=== PATIENT | female | born 1990 | race Caucasian/White ===

== ENCOUNTER 2017-02-10 09:20 | Emergency (ER) | payer OTHER ==
[~2017-02-10] VITALS: Ht 152.4 cm; Wt 80.0 kg
[~2017-02-10 09:20] MED LIST: CIPR500T4 PO; CYCL-319 PO; IBUP-1542 PO
[2017-02-10 09:34] VITALS: Ht 152.4 cm; Wt 80.0 kg
[2017-02-10] MEDS ORDERED: ONDANSETRON (ODT) 4 MG TAB ODT STA (10:29)
--- NOTE | 2017-02-10 10:34 | ERD ---
ER Documentation Chief Complaint Date/Time DATE: 02/10/17 TIME: 10:33 Chief Complaint vomiting HPI 18-year-old female complains of vomiting and cramps in her abdomen after having fluid outside last night. 3 per family members have similar complaints at all at the same thing. No fevers no chills. No diarrhea. No other current complaints. Pain is mild. ROS All systems reviewed and are negative except as per history of present illness. Medications Home Meds Active Scripts Cyclobenzaprine Hcl* (Cyclobenzaprine Hcl*) 10 Mg Tablet, 10 MG PO TID, #15 TAB Prov:ANSON KRAMER. PLANER TAILER 08/08/16 Ibuprofen* (Motrin*) 600 Mg Tab, 600 MG PO Q6H Y for PAIN AND OR ELEVATED TEMP, #30 TAB Prov:ANSON KRAMER. PLANER TAILER 08/08/16 Ciprofloxacin Hcl* (Ciprofloxacin Hcl*) 500 Mg Tablet, 500 MG PO BID for 7 Days , TAB Prov:TAMI CARRILLO DO 03/07/16 Allergies Allergies: Coded Allergies: No Known Drug Allergies (Verified Allergy, Mild, 03/07/16) PMhx/Soc Medical and Surgical Hx: pt denies Medical Hx, pt denies Surgical Hx History of Surgery: No Anesthesia Reaction: No Hx Neurological Disorder: No Hx Respiratory Disorders: No Hx Cardiac Disorders: No Hx Psychiatric Problems: No Hx Miscellaneous Medical Probl: No Hx Alcohol Use: No Hx Substance Use: No Hx Tobacco Use: No Smoking Status: Never smoker Physical Exam Vitals Vital Signs Date Time Temp Pulse Resp B/P Pulse Ox O2 Delivery O2 Flow Rate FiO2 02/10/17 09:34 98.3 85 18 110/65 99 Physical Exam Const: [] Head: Atraumatic Eyes: Normal Conjunctiva ENT: Normal External Ears, Nose and Mouth. Neck: Full range of motion..~ No meningismus. Resp: Clear to auscultation bilaterally Cardio: Regular rate and rhythm, no murmurs Abd: Soft, non tender, non distended. Normal bowel sounds Skin: No petechiae or rashes Back: No midline or flank tenderness Ext: No cyanosis, or edema Neur: Awake and alert Psych: Normal Mood and Affect Results 24 hrs Current Medications Medications (Trade) Dose Ordered Sig/Maddy Route PRN Reason Start Time Stop Time Status Last Admin Dose Admin Ondansetron HCl (Zofran Odt) 4 mg ONCE STAT ODT 02/10/17 10:29 02/10/17 10:30 DC 02/10/17 10:32 Procedures/MDM Very pleasant 18-year-old female with likely foodborne gastroenteritis. At this point clinically stable he will be discharged home with Zofran and Bentyl. Told to increase p.o. fluid intake. Follow with PCP. Return here in 8 hours for serial abdominal exams. Departure Diagnosis: Primary Impression: Gastroenteritis DICKSON ROGERS February 10, 2017 10:34
[2017-02-10] MEDS ORDERED: DICY10CA60 PO (10:38)
[2017-02-10] MEDS ORDERED: ONDA4TAB14 PO (10:38)
== END 2017-02-10 10:56 | disposition home or self-care (01) ==
LOC: E/R 09:20
DX: K52.9 Noninfective gastroenteritis and colitis, unspecified (principal)
CPT/HCPCS: Z7502; Z7610; 99284

== ENCOUNTER 2017-06-12 19:10 | Emergency (ER) | payer OTHER ==
[~2017-06-12] VITALS: Ht 162.6 cm; Wt 76.5 kg
[~2017-06-12 19:10] MED LIST changes: +DICY10CA60 PO; +ONDA4TAB14 PO
[2017-06-12 19:23] VITALS: Ht 162.6 cm; Wt 76.5 kg
[2017-06-12] MEDS ORDERED: AMOX500C2 PO (19:41)
--- NOTE | 2017-06-12 19:45 | ERA ---
ER Documentation Chief Complaint Date/Time DATE: 06/12/17 TIME: 19:42 Chief Complaint cough x 4 days HPI Otherwise healthy 26-year-old female presents with a chief complaint of pharyngitis and cough. Patient has had these symptoms once a year for as long as she can remember. Denies any fever, difficulty breathing, dysphagia, odynophagia, change in voice, drooling, headache. As take getting cough syrup with moderate relief. States she has taken amoxicillin in the past with relief of symptoms.Patient has no other complaints and describes no other associated manifestations. Nursing notes have been reviewed and are consistent with history given. ROS All systems reviewed and are negative except as per history of present illness. Medications Home Meds Active Scripts Amoxicillin* (Amoxicillin*) 500 Mg Cap, 500 MG PO BID for 10 Days, CAP Prov:MORGAN PADILLA PA-C 06/12/17 Ondansetron (Ondansetron Odt) 4 Mg Tab.rapdis, 4 MG PO Q6H Y for NAUSEA AND/OR VOMITING, #10 TAB Prov:DICKSON ROGERS. 02/10/17 Dicyclomine Hcl* (Bentyl*) 10 Mg Capsule, 10 MG PO QID, #20 CAP Prov:DICKSON ROGERS S. 02/10/17 Cyclobenzaprine Hcl* (Cyclobenzaprine Hcl*) 10 Mg Tablet, 10 MG PO TID, #15 TAB Prov:ANSON KRAMER. SALES CONSULTANT 08/08/16 Ibuprofen* (Motrin*) 600 Mg Tab, 600 MG PO Q6H Y for PAIN AND OR ELEVATED TEMP, #30 TAB Prov:ANSON KRAMER. SALES CONSULTANT 08/08/16 Ciprofloxacin Hcl* (Ciprofloxacin Hcl*) 500 Mg Tablet, 500 MG PO BID for 7 Days , TAB Prov:TAMI CARRILLO DO 03/07/16 Allergies Allergies: Coded Allergies: No Known Drug Allergies (Verified Allergy, Mild, 03/07/16) PMhx/Soc History of Surgery: No Anesthesia Reaction: No Hx Neurological Disorder: No Hx Respiratory Disorders: No Hx Cardiac Disorders: No Hx Psychiatric Problems: No Hx Miscellaneous Medical Probl: No Hx Alcohol Use: No Hx Substance Use: No Hx Tobacco Use: No Smoking Status: Never smoker Physical Exam Vitals Vital Signs Date Time Temp Pulse Resp B/P Pulse Ox O2 Delivery O2 Flow Rate FiO2 9/29/17 19:23 98.2 75 20 106/66 100 Physical Exam Const: [] Head: Atraumatic Eyes: Normal Conjunctiva ENT: Normal External Ears, Nose and Mouth. Neck: Full range of motion..~ No meningismus. Resp: Clear to auscultation bilaterally Cardio: Regular rate and rhythm, no murmurs Abd: Soft, non tender, non distended. Normal bowel sounds Skin: No petechiae or rashes Back: No midline or flank tenderness Ext: No cyanosis, or edema Neur: Awake and alert Psych: Normal Mood and Affect Procedures/MDM Otherwise healthy 26-year-old female presented with a chief complaint of pharyngitis and cough 1 week as described in history and physical examination. Has a chronic history of tonsillitis. States amoxicillin has worked in the past. No fever. No suspicion for endangerment of the airway. Physical examination revealed exudates and enlarged tonsils bilaterally with an erythematous oropharynx. Nares have unremarkable. Most likely diagnosis is acute on chronic tonsillitis. I recommended follow-up with PCP for reevaluation and possible referral to a specialist. I have spoke with the patient regarding their condition and future management. They have verbally responded that they understand their status and treatment plan. The patients vitals are stable, and their current condition is appropriate for discharge. The patient will be given discharge instructions with return precautions. Discharge medications: Amoxicillin 500 mg twice daily 10 days. I recommended [id number] ibuprofen for discomfort Departure Diagnosis: Primary Impression: Tonsillitis Condition: Stable Additional Instructions: Follow up with your PCP within the next 1-3 days for a more thorough evaluation and a possible referral to a specialist. Return the the emergency department immediately if symptoms worsen or change. If you have any questions regarding medications, ask your pharmacist or us before you leave. If any adverse reactions occur while taking your medications, discontinue the treatment and return to the emergency department immediately. Take your medications as directed, and complete the entire course of treatment. MORGAN PADILLA PA-C Jun 12, 2017 19:45
== END 2017-06-12 19:58 | disposition home or self-care (01) ==
LOC: FTE 19:10
DX: J03.90 Acute tonsillitis, unspecified (principal)
CPT/HCPCS: 99283

== ENCOUNTER 2018-09-14 19:01 | Emergency (ER) | payer OTHER ==
[~2018-09-14] VITALS: Ht 157.5 cm; Wt 77.2 kg
[~2018-09-14 19:01] MED LIST changes: +AMOX500C2 PO; -CYCL-319 PO; +CYCL10TA7 PO; +DICY10CA40 PO; -DICY10CA60 PO
[2018-09-14 19:08] VITALS: BP 128/68; PULSE 107; RESP 19; Ht 157.5 cm; Wt 77.2 kg
[2018-09-14] MEDS ORDERED: ACETAMINOPHEN 325 MG TAB PO ONE (20:00)
[2018-09-14] MEDS ORDERED: IBUP-1542 PO (20:06)
[2018-09-14] MEDS ORDERED: AMOX1TAB10 PO (20:06)
[2018-09-14] MEDS ORDERED: IBUPROFEN 600 MG TAB PO ONE (20:30)
--- NOTE | 2018-09-14 21:35 | ERD ---
ER Documentation Chief Complaint Chief Complaint ST w/ body aches/fever/chills since yesterday HPI 27-year-old female patient with no significant past medical history presents the ED complaining of fever, body aches, sore throat, chills that started yesterday. Patient reports that she started to notice white stuff on her tonsils. Patient is up-to-date with her vaccinations. Patient reports that she is able to swallow liquids and solids without any difficulty. Denies any chest pain, shortness of breath, nausea, vomiting, diarrhea, neck stiffness. ROS All systems reviewed and are negative except as per history of present illness. Medications Home Meds Active Scripts Ibuprofen* (Motrin*) 600 Mg Tab, 600 MG PO Q6, #30 TAB Prov:MOLINA CHIU PA-C 09/14/18 Amoxicillin/Potassium Clav (Amox-Clav 875-125 mg Tablet) 875-125 mg Tab, 1 TAB PO BID for 10 Days, #20 TAB Prov:MOLINA CHIU PA-C 09/14/18 Amoxicillin* (Amoxicillin*) 500 Mg Cap, 500 MG PO BID for 10 Days, CAP Prov:MORGAN PADILLA PA-C 06/12/17 Ondansetron (Ondansetron Odt) 4 Mg Tab.rapdis, 4 MG PO Q6H PRN for NAUSEA AND/OR VOMITING, #10 TAB Prov:DICKSON ROGERS 02/10/17 Dicyclomine HCl (Dicyclomine HCl) 10 Mg Capsule, 10 MG PO QID, #20 CAP Prov:DICKSON ROGERS 02/10/17 Cyclobenzaprine Hcl* (Cyclobenzaprine Hcl*) 10 Mg Tablet, 10 MG PO TID, #15 TAB Prov:ANSON KRAMER NP 08/08/16 Ibuprofen* (Motrin*) 600 Mg Tab, 600 MG PO Q6H PRN for PAIN AND OR ELEVATED TEMP, #30 TAB Prov:ANSON KRAMER FORGING PRESS OPERATOR 08/08/16 Ciprofloxacin Hcl* (Ciprofloxacin Hcl*) 500 Mg Tablet, 500 MG PO BID for 7 Days, TAB Prov:TAMI CARRILLO DO 03/07/16 Allergies Allergies: Coded Allergies: No Known Drug Allergies (Verified Allergy, Mild, 03/07/16) PMhx/Soc Medical and Surgical Hx: pt denies Medical Hx, pt denies Surgical Hx History of Surgery: No Anesthesia Reaction: No Hx Neurological Disorder: No Hx Respiratory Disorders: No Hx Cardiac Disorders: No Hx Psychiatric Problems: No Hx Miscellaneous Medical Probl: No Hx Alcohol Use: No Hx Substance Use: No Hx Tobacco Use: No Smoking Status: Never smoker FmHx Family History: No diabetes, No coronary disease Physical Exam Vitals Vital Signs Date Temp Pulse Resp B/P (MAP) Pulse Ox O2 O2 Flow FiO2 Time Delivery Rate 09/14/18 100.6 21:07 09/14/18 102.0 20:20 09/14/18 102.1 19:49 09/14/18 101.7 107 19 128/68 99 19:08 (88) Physical Exam Const: [id number], well-nourished. In no acute distress. Head: Atraumatic, normocephalic Eyes: Normal Conjunctiva without injection. No purulent discharge. PERRL. EOMI ENT: Normal external ear. Ear canal without erythema. Tympanic membrane pearly esteves without effusion or bulging. Nasal canal clear with normal turbinates. Moist oropharynx without tonsillar exudates. Non-erythematous pharynx. Uvula midline. No drooling. No trismus. Neck: Full range of motion. No meningismus. No cervical lymphadenopathy. Resp: Clear to auscultation bilaterally. No wheezing, rhonchi, rales, or crackles. No accessory muscle use. No retractions. Cardio: Regular rate and rhythm. No murmurs, rubs or gallops. Abd: Soft, non tender, non distended. Normal bowel sounds. No palpable masses. No rebound tenderness. No guarding. Skin: No petechiae or rashes Back: No midline tenderness. No CVA tenderness. Ext: No cyanosis, or edema. Neur: Awake and alert. Psych: Normal Mood and Affect Results 24 hrs Laboratory Tests Test 09/14/18 19:46 POC Beta HCG, Qualitative NEGATIVE Current Medications Medications Dose Sig/Maddy Start Time Status Last (Trade) Ordered Route PRN Stop Time Admin Dose Reason Admin 650 mg ONCE ONCE 09/14/18 DC 09/14/18 Acetaminophen PO 20:00 09/14/18 19:49 (Tylenol 20:01 Tab) Ibuprofen 600 mg ONCE ONCE 09/14/18 DC 09/14/18 (Motrin) PO 20:30 09/14/18 20:28 20:31 Procedures/MDM 27-year-old female patient with no significant past medical history presents to ED complaining of sore throat, body aches, fever that started yesterday. Nikki ent is a fever of 101.7. Ibuprofen, Tylenol was ordered to further downtrend patient's temperature. Patient likely has acute bacterial tonsillitis. Patient is appropriate for outpatient antibiotics. Patient's physical exam include lungs which were clear to auscultation and a normal pulse oximetry. Bilateral ears pearly pa. No tenderness to palpation of tragus or mastoid. Low suspicion for mastoiditis, otitis externa, otitis media. Patient is speaking in full sentences. There is a low suspicion for pneumonia, epiglottitis, croup, sinusitis, peritonsillar abscess, hands foot mouth disease, scarlet fever, Kawasaki disease, Vinicio's angina, retropharyngeal abscess, meningitis, sepsis, acute abdomen or other emergent conditions. Diagnosis: Sore Throat Discharge medications: Augmentin, Ibuprofen Follow up with primary care physician in 1-2 days. Instructed patient to return to the ED sooner for any worsening symptoms. Patient's questions were answered. Patient is hemodynamically stable. Patient understood and agreed with discharge plan. Patient discharged stable. Disclaimer: Inadvertent spelling and grammatical errors are likely due to EHR/dictation software use and do not reflect on the overall quality of patient care. Also, please note that the electronic time recorded on this note does not necessarily reflect the actual time of the patient encounter. Departure Diagnosis: Primary Impression: Sore throat Condition: Stable Patient Instructions: Pharyngitis, Strep (Presumed) Referrals: [facility] YOU HAVE RECEIVED A MEDICAL SCREENING EXAM AND THE RESULTS INDICATE THAT YOU DO NOT HAVE A CONDITION THAT REQUIRES URGENT TREATMENT IN THE EMERGENCY DEPARTMENT. FURTHER EVALUATION AND TREATMENT OF YOUR CONDITION CAN WAIT UNTIL YOU ARE SEEN IN YOUR DOCTORS OFFICE WITHIN THE NEXT 1-2 DAYS. IT IS YOUR RESPONSIBILITY TO MAKE AN APPOINTMENT FOR FOLOW-UP CARE. IF YOU HAVE A PRIMARY DOCTOR --you should call your primary doctor and schedule an appointment IF YOU DO NOT HAVE A PRIMARY DOCTOR YOU CAN CALL OUR PHYSICIAN REFERRAL HOTLINE AT IF YOU CAN NOT AFFORD TO SEE A PHYSICIAN YOU CAN CHOSE FROM THE FOLLOWING [facility] CLINICS [facility] [address] [facility] [address] [facility] [address] [facility] [address] [facility] [address]. [facility] [address] [facility]. [facility] YOU HAVE RECEIVED A MEDICAL SCREENING EXAM AND THE RESULTS INDICATE THAT YOU DO NOT HAVE A CONDITION THAT REQUIRES URGENT TREATMENT IN THE EMERGENCY DEPARTMENT. FURTHER EVALUATION AND TREATMENT OF YOUR CONDITION CAN WAIT UNTIL YOU ARE SEEN IN YOUR DOCTORS OFFICE WITHIN THE NEXT 1-2 DAYS. IT IS YOUR RESPONSIBILITY TO MAKE AN APPOINTMENT FOR FOLOW-UP CARE. IF YOU HAVE A PRIMARY DOCTOR --you should call your primary doctor and schedule and appointment IF YOU DO NOT HAVE A PRIMARY DOCTOR YOU CAN CALL OUR PHYSICIAN REFERRAL HOTLINE AT . IF YOU CAN NOT AFFORD TO SEE A PHYSICIAN YOU CAN CHOSE FROM THE FOLLOWING [facility] INSTITUTIONS: [facility] [address] [place] [address] [facility] [address] [place] [address] [facility] [address] [place] [address] [facility] Additional Instructions: Call your primary care doctor TOMORROW for an appointment during the next 2-3 days.See the doctor sooner or return here if your condition worsens before your appointment time. MOLINA CHIU PA-C Sep 14, 2018 21:35
== END 2018-09-14 21:08 | disposition home or self-care (01) ==
LOC: FTE 19:01
DX: J02.9 Acute pharyngitis, unspecified (principal)
CPT/HCPCS: 81025; Z7502; Z7610; 99283